=== PATIENT | female | born 1930 | race African-American/Black ===

== ENCOUNTER 2019-03-31 20:25 | Inpatient (IN) | payer MEDICARE, MEDICAID ==
[~2019-03-31] VITALS: Ht 144.8 cm; Wt 61.2 kg
[~2019-03-31 20:25] MED LIST: AMLO2.5T45 PO; ASPI-1497 PO; BRIM.2 RIGHTEYE; DICL1KIT TP; DILT180T11 MT; FERR-43 PO; FLUT1AER INH; IPRA4AER INH; LIP40 MT; LIP40 PO; MONT10TA21 MT; MONT10TA21 PO; OMEP20CA14 MT; OMEP20CA14 PO; PRED5DRO22 RIGHTEYE; TRIA1TAB92 MT; combivent respimat INH
[2019-03-31] MEDS ORDERED: IPRATROPIUM BROMIDE (0.02%) 0.5MG/2.5ML NEB HHN STA (20:45)
[2019-03-31] MEDS ORDERED: ALBUTEROL (0.083%) 2.5MG/3ML NEB HHN STA (20:45)
[2019-03-31 21:21] LABS: BASOPHILS % 0.6 % (0.0-2.0); EOSINOPHILS % 11.1 % (0.0-5.0); HEMATOCRIT. 38.7 % (36.0-48.0); HEMOGLOBIN. 12.5 g/dL (12.0-16.0); LYMPHOCYTES % 38.3 % (20.0-50.0); MEAN CORPUSCULAR HEMOGLOBIN 25.5 pg (28.0-32.0); MEAN CORPUSCULAR VOLUME 78.8 fL (81.0-99.0); MEAN PLATELET VOLUME 8.1 fl (7.4-10.4); MONOCYTES % 10.3 % (2.0-8.0); NEUTROPHILS % 39.7 % (40.0-76.0); PLATELET 229 x1000/uL (130-400); RED BLOOD CELL COUNT 4.92 mill/uL (4.2-5.4); RED CELL DISTRIBUTION WIDTH 18.7 % (11.6-14.6)
[2019-03-31 21:25] LABS: CHLORIDE 106 mEq/L (98-107); PROTHROMBIN TIME 10.2 sec (9.6-11.0)
[2019-03-31 21:40] LABS: BG BASE EXCESS -4.1 mmol/L (-2.0-2.0); BG BILEVEL POS AIRWAY PRESSURE 15/5; BG CARBOXYHEMOGLOBIN 0.1 % (0.5-1.5); BG DEOXYHEMOGLOBIN 1.3 % (0.0-5.0); BG FRACTION INSPIRED OXYGEN 50; BG HCO3 ACT 21.2 mmol/L (22.0-26.0); BG METHEMOGLOBIN 0.1 % (0.0-1.5); BG OXYGEN SATURATION 98.7 % (92.0-98.5); BG OXYHEMOGLOBIN 98.5 % (94.0-97.0); BG PCO2 39.8 mmHg (35.0-45.0); BG PH 7.345 (7.350-7.450); BG PO2 212.6 mmHg (75.0-100.0); BG SAMPLE SITE RIGHT RADIAL; BG TOTAL HEMOGLOBIN 12.1 g/dL (12.0-18.0); BG VENT MODE MASK - BIPAP
[2019-04-01] VITALS (8 sets, daily range): BP systolic 99–142; BP diastolic 41–72
[2019-04-01] MEDS ORDERED: PROMETHAZINE/DEXTROMETHORPHAN 6.25-15MG/5ML BOTTLE 120ML PO PRN (00:30)
[2019-04-01] MEDS ORDERED: DIPHENHYDRAMINE 50MG/ML VIAL IV PRN (00:30)
[2019-04-01] MEDS ORDERED: ONDANSETRON HCL 4MG/2ML INJ IV PRN (00:30)
[2019-04-01] MEDS ORDERED: ACETAMINOPHEN 325MG TABLET PO PRN (00:30)
[2019-04-01] MEDS ORDERED: IPRATROPIUM/ALBUTEROL 0.5-3(2.5)MG/3ML NEB NEB PRN (00:30)
[2019-04-01] MEDS ORDERED: CLONIDINE 0.1MG TABLET PO PRN (00:30)
[2019-04-01] MEDS ORDERED: BRIMONIDINE 0.2% OPHTH DROPS 5ML BOTHEYE SCH (06:00)
[2019-04-01] MEDS ORDERED: PREDNISOLONE ACETATE 1% OPHTH DROPS 5ML BOTHEYE SCH (06:00)
[2019-04-01] MEDS: SODIUM CHLORIDE 0.9% INJ 3ML FLUSH IVF SCH ×3 (06:00→22:14)
[2019-04-01] MEDS: IPRATROPIUM/ALBUTEROL 0.5-3(2.5)MG/3ML NEB HHN SCH ×3 (07:50→19:52)
[2019-04-01] MEDS: METHYLPREDNISOLONE SOD SUCC 125 MG/2 ML VIAL IV SCH ×3 (07:52→22:12)
[2019-04-01] MEDS ORDERED: MAGNESIUM/ALUMINUM HYDROXIDE/SIMETHICONE 30ML UDC PO PRN (09:00)
[2019-04-01] MEDS ORDERED: FAMOTIDINE 20MG TABLET PO SCH (09:00)
[2019-04-01] MEDS: GUAIFENESIN 200MG/10ML SUGAR FREE UDC PO PRN ×2 (12:53→22:25)
[2019-04-01] MEDS: ASPIRIN 81MG EC TABLET PO SCH (12:54)
[2019-04-01] MEDS: DILTIAZEM HCL 60MG TABLET PO SCH ×2 (12:55→22:11)
[2019-04-01] MEDS: FAMOTIDINE 20MG TABLET PO SCH (14:00)
[2019-04-01] MEDS: PREDNISOLONE ACETATE 1% OPHTH DROPS 5ML RIGHTEYE SCH ×3 (15:00→22:12)
[2019-04-01] MEDS: BRIMONIDINE 0.2% OPHTH DROPS 5ML RIGHTEYE SCH ×2 (16:19→22:12)
[2019-04-01] MEDS: DICLOFENAC SODIUM 0.1% OPHTH 2.5 ML BOTTLE RIGHTEYE SCH (16:19)
[2019-04-01] MEDS: MONTELUKAST SODIUM 10MG TABLET PO SCH (16:34)
[2019-04-01] MEDS: CARBAMIDE PEROXIDE 6.5% OTIC SOLN 15ML EACH EAR SCH (17:43)
[2019-04-01] MEDS: ATORVASTATIN CALCIUM 40MG TABLET PO SCH (22:12)
[2019-04-01] MEDS: FLUTICASONE PROPIONATE 50MCG/SPRAY BOTTLE BOTHNSTRLS SCH (22:13)
[2019-04-02] VITALS (12 sets, daily range): BP systolic 110–145; BP diastolic 58–81
[2019-04-02] MEDS: IPRATROPIUM/ALBUTEROL 0.5-3(2.5)MG/3ML NEB HHN SCH ×4 (01:27→20:04)
[2019-04-02] MEDS: METHYLPREDNISOLONE SOD SUCC 125 MG/2 ML VIAL IV SCH ×2 (06:01→17:00)
[2019-04-02] MEDS: DILTIAZEM HCL 60MG TABLET PO SCH ×3 (06:01→23:25)
[2019-04-02] MEDS: SODIUM CHLORIDE 0.9% INJ 3ML FLUSH IVF SCH ×3 (06:02→22:00)
[2019-04-02] MEDS: PREDNISOLONE ACETATE 1% OPHTH DROPS 5ML RIGHTEYE SCH ×3 (06:02→19:30)
[2019-04-02] MEDS: BRIMONIDINE 0.2% OPHTH DROPS 5ML RIGHTEYE SCH ×3 (06:02→23:23)
[2019-04-02 07:23] LABS: BASOPHILS % 0.1 % (0.0-2.0); EOSINOPHILS % 0.1 % (0.0-5.0); HEMATOCRIT. 36.9 % (36.0-48.0); LYMPHOCYTES % 23.1 % (20.0-50.0); MEAN CORPUSCULAR HEMOGLOBIN 25.3 pg (28.0-32.0); MEAN CORPUSCULAR VOLUME 78.1 fL (81.0-99.0); MEAN PLATELET VOLUME 8.1 fl (7.4-10.4); MONOCYTES % 2.1 % (2.0-8.0); NEUTROPHILS % 74.6 % (40.0-76.0); PLATELET 239 x1000/uL (130-400); RED BLOOD CELL COUNT 4.72 mill/uL (4.2-5.4); RED CELL DISTRIBUTION WIDTH 18.6 % (11.6-14.6)
[2019-04-02 07:37] LABS: CHLORIDE 108 mEq/L (98-107)
[2019-04-02] MEDS: DICLOFENAC SODIUM 0.1% OPHTH 2.5 ML BOTTLE RIGHTEYE SCH ×3 (08:00→23:24)
[2019-04-02] MEDS: FAMOTIDINE 20MG TABLET PO SCH (09:03)
[2019-04-02] MEDS: ASPIRIN 81MG EC TABLET PO SCH (09:03)
[2019-04-02] MEDS: CARBAMIDE PEROXIDE 6.5% OTIC SOLN 15ML EACH EAR SCH ×2 (09:04→17:01)
[2019-04-02] MEDS: FLUTICASONE PROPIONATE 50MCG/SPRAY BOTTLE BOTHNSTRLS SCH ×2 (09:04→23:24)
[2019-04-02] MEDS: MONTELUKAST SODIUM 10MG TABLET PO SCH (17:01)
[2019-04-02] MEDS: BUDESONIDE 0.5MG/2ML NEB HHN SCH (20:04)
[2019-04-02] MEDS: ATORVASTATIN CALCIUM 40MG TABLET PO SCH (23:24)
[2019-04-03] VITALS (9 sets, daily range): BP systolic 134–168; BP diastolic 66–86
[2019-04-03] MEDS: IPRATROPIUM/ALBUTEROL 0.5-3(2.5)MG/3ML NEB HHN SCH ×2 (01:58→10:29)
[2019-04-03] MEDS: PREDNISOLONE ACETATE 1% OPHTH DROPS 5ML RIGHTEYE SCH ×2 (03:27→11:30)
[2019-04-03] MEDS: BRIMONIDINE 0.2% OPHTH DROPS 5ML RIGHTEYE SCH ×2 (05:22→14:00)
[2019-04-03] MEDS: DILTIAZEM HCL 60MG TABLET PO SCH ×2 (05:23→14:55)
[2019-04-03] MEDS: SODIUM CHLORIDE 0.9% INJ 3ML FLUSH IVF SCH ×2 (05:29→14:00)
[2019-04-03] MEDS: DICLOFENAC SODIUM 0.1% OPHTH 2.5 ML BOTTLE RIGHTEYE SCH ×2 (08:00→08:59)
[2019-04-03] MEDS: FLUTICASONE PROPIONATE 50MCG/SPRAY BOTTLE BOTHNSTRLS SCH (08:59)
[2019-04-03] MEDS: FAMOTIDINE 20MG TABLET PO SCH (09:00)
[2019-04-03] MEDS: ASPIRIN 81MG EC TABLET PO SCH (09:00)
[2019-04-03] MEDS: CARBAMIDE PEROXIDE 6.5% OTIC SOLN 15ML EACH EAR SCH (09:00)
[2019-04-03] MEDS: METHYLPREDNISOLONE SOD SUCC 125 MG/2 ML VIAL IV SCH (09:00)
[2019-04-03] MEDS: BUDESONIDE 0.5MG/2ML NEB HHN SCH (10:26)
[2019-04-03] MEDS: GUAIFENESIN 200MG/10ML SUGAR FREE UDC PO PRN (14:54)
[2019-04-03 18:04] LABS: VITAMIN B12 SERUM 782 pg/mL (211-911)
[2019-04-04] MEDS ORDERED: PREDNISONE 20MG TABLET PO SCH (09:00)
== END 2019-04-03 16:25 | disposition home or self-care (01) | DRG 189 ==
LOC: ER 20:25 → EDBEDREQ 23:30 → EDBEDREQTM 23:30 → 3WST 23:49 → EDBEDREQTM 23:51 → EDBEDREQSVC 23:51 → ENRESERV 04-01 08:37
PROVIDERS: ADMIT Internal Medicine; ATTEND Internal Medicine
PROC: 5A09357 Assistance with Respiratory Ventilation, Less than 24 Consecutive Hours, Continuous Positive Airway Pressure (ICD-10-PCS; principal; 2019-03-31)
DX: J96.01 Acute respiratory failure with hypoxia (principal); J44.1 Chronic obstructive pulmonary disease with (acute) exacerbation; J45.901 Unspecified asthma with (acute) exacerbation; I25.10 Atherosclerotic heart disease of native coronary artery without angina pectoris; I50.9 Heart failure, unspecified; I11.0 Hypertensive heart disease with heart failure; E78.00 Pure hypercholesterolemia, unspecified; J06.9 Acute upper respiratory infection, unspecified; D72.1 Eosinophilia; E78.5 Hyperlipidemia, unspecified; I73.9 Peripheral vascular disease, unspecified; K21.9 Gastro-esophageal reflux disease without esophagitis; Z90.710 Acquired absence of both cervix and uterus; Z95.1 Presence of aortocoronary bypass graft; Z88.0 Allergy status to penicillin; Z88.2 Allergy status to sulfonamides; Z88.8 Allergy status to other drugs, medicaments and biological substances; Z79.82 Long term (current) use of aspirin; Z79.899 Other long term (current) drug therapy
CPT/HCPCS: 36415; 36600; 71045; 80048; 80053; 82375; 82607; 82805; 83735; 83880; 84443; 84484; 85025; 87804; 93005; 93970; 94640; 94660; 96374; 97110; 97116; 97162; 97166; 97530; 97535; 99285; J2930; J7626